=== PATIENT | female | born 1995 | race Caucasian/White ===

== ENCOUNTER 2017-11-19 21:45 | Emergency (ER) | payer OTHER, SELFPAY ==
[2017-11-19 21:46] VITALS: BP 132/87; PULSE 82; RESP 14; TEMP 37.2; O2SAT 98; BMI 33.8
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
[2017-11-19] MEDS: Amox/Clavulanate 875 MG Tablet PO (23:23)
[2017-11-19] MEDS: Diphth,Pertuss(Acell),Tet Vac 0.5 ML Vial IM (23:23)
== END 2017-11-19 23:38 | disposition home or self-care (01) ==
LOC: ED 23:18
PROVIDERS: Emergency Provider Emergency Medicine
DX: S21.251A Open bite of right back wall of thorax without penetration into thoracic cavity, initial encounter (principal); Z23 Encounter for immunization; Y04.1XXA Assault by human bite, initial encounter; Y93.89 Activity, other specified; Y92.89 Other specified places as the place of occurrence of the external cause; Y99.0 Civilian activity done for income or pay
CPT/HCPCS: 90471; 90715; 99283

== ENCOUNTER 2018-04-04 22:17 | Emergency (ER) | payer BC, SELFPAY ==
[2018-04-04 22:18] VITALS: BP 160/84; PULSE 97; RESP 20; TEMP 36.8; O2SAT 99; BMI 36.1
[2018-04-04 22:57] VITALS: RESP 16
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
--- NOTE | 2018-04-04 23:15 | ED.DEP ---
ED Disposition - Plan for ED Patient: Disposition: Home or Assisted Living Chief Complaint: Allergic Reaction Instructions: ED Allergic Reaction Local Other Referrals: Care Physician,No Primary [Primary Care Provider] - Guillermo Pillai DO [NON CLINICAL AFFILIATE] -
[2018-04-04 23:21] VITALS: BP 130/85; PULSE 82; RESP 16; O2SAT 100
--- NOTE | 2018-04-04 23:21 | ED.RN ---
REVIEWED D/C INSTRUCTIONS, FOLLOW UP CARE, AND S/S THAT WOULD WARRANT A RETURN TO THE ED WITH PT. PT VERBALIZED AN UNDERSTANDING AND DENIES FURTHER QUESTIONS FOR THIS RN. PT SKIN P/W/D, RESP EVEN AND UNLABORED, PT A&O X 3, NO DISTRESS NOTED. PT AMBULATED OUT OF ED, GAIT STEADY.
== END 2018-04-04 23:23 | disposition home or self-care (01) ==
PROVIDERS: Emergency Provider Emergency Medicine
DX: T78.1XXA Other adverse food reactions, not elsewhere classified, initial encounter (principal); R22.0 Localized swelling, mass and lump, head
CPT/HCPCS: 99282

== ENCOUNTER → 2021-05-12 | Outpatient (CLI) | payer BC, SELFPAY ==
[2021-05-12 13:22] LABS: Amphetamine Urine VISTA NEGATIVE (<1000 ng/mL); Barbiturate Urine VISTA NEGATIVE (< 200 ng/mL); Benzodiazepine Urine VISTA NEGATIVE (< 200 ng/mL); Cocaine Urine VISTA NEGATIVE (< 300 ng/mL); Ecstacy Urine VISTA NEGATIVE (< 500 ng/mL); Methadone Urine VISTA NEGATIVE (< 300 ng/mL); PCP Urine VISTA NEGATIVE (< 25 ng/mL); THC Urine VISTA NEGATIVE (< 50 ng/mL); Vista UDS pH Range 6
[2021-05-15 03:07] LABS: Chlamydia By Nucleic Acid AMP Negative (Negative)
[2021-05-15 13:05] LABS: Gonococcus By Nucleic Acid AMP Negative (Negative)
[2021-05-16 22:29] LABS: HPV Reflexed? NOT INDICATED
== END | disposition home or self-care (01) ==
PROVIDERS: Obstetrics & Gynecology; Visit Provider Obstetrics & Gynecology
DX: Z34.00 Encounter for supervision of normal first pregnancy, unspecified trimester (principal)
CPT/HCPCS: 80307; 87086; 87088; 87491; 87591; 88175; G0145

== ENCOUNTER → 2021-06-05 08:41 | Outpatient (CLI) | payer BC, SELFPAY ==
[2021-06-05 09:58] LABS: NATERA MAILED SPECIMEN
[2021-06-05 10:26] LABS: Absolute Lymphocyte Count 2.31 X10^3/uL (0.83-4.51); Basophil# 0.04 X10^3/uL; Basophil% 0.4 % (0-1); Eosinophil# 0.07 X10^3/uL; Eosinophils% 0.8 % (0-5); Hematocrit 36.2 % (37-47); Hemoglobin 11.1 g/dL (12.0-15.0); Lymphocyte # 2.31 X10^3/ul (0.83-4.51); Lymphocyte % 25.8 % (19-41); Mean Corp Hgb Conc 30.7 g/dL (32-36); Mean Corpuscular Hgb 24.6 pg (27.0-32.0); Mean Corpuscular Volume 80.1 fL (81-99); Monocyte# 0.51 X10^3/uL; Monocyte% 5.7 % (0-10); NRBC Flagged by Analyzer 0 % (0-5); Neutrophil % 66.9 % (47-70); Platelet Count 302 K/mm3 (150-450); RBC Distribution Width CV 15.3 % (11.6-14.6); RBC Distribution Width SD 44.4 fl (35.1-43.9); Red Blood Count 4.52 M/mm3 (4.2-5.4)
[2021-06-05 10:52] LABS: Glucose Challenge Gest 1H 50g 125 mg/dL (70-140)
[2021-06-05 11:28] LABS: HIV - WCH Non-Reactive (Nonreactive); Hepatitis B Surface Antigen Non-Reactive (Nonreactive); Hepatitis C Antibody Non-Reactive (Nonreactive); Rubella IgG Reactive (Nonreactive); Syphilis Antibodies Non-reactive
== END ==
PROVIDERS: Visit Provider Obstetrics & Gynecology
DX: O99.210 Obesity complicating pregnancy, unspecified trimester (principal); Z3A.00 Weeks of gestation of pregnancy not specified
CPT/HCPCS: 36415; 82950; 85025; 86703; 86762; 86780; 86803; 86850; 86900; 86901; 87340

== ENCOUNTER → 2021-09-01 | Outpatient (CLI) | payer BC, SELFPAY ==
[2021-09-01 17:39] LABS: Protein, Urine (Random) 14.6 mg/dL (<11.9); Protein:Creat Ratio 160 mg/g CRE (0-200)
== END | disposition home or self-care (01) ==
PROVIDERS: Visit Provider Obstetrics & Gynecology
DX: O10.919 Unspecified pre-existing hypertension complicating pregnancy, unspecified trimester (principal)
CPT/HCPCS: 82570; 84156

== ENCOUNTER 2021-09-28 10:30 | Outpatient (CLI) | payer BC, SELFPAY ==
[2021-09-28 11:04] LABS: Absolute Lymphocyte Count 1.89 X10^3/uL (0.83-4.51); Absolute Neutrophil Count 7.5 X10^3/uL (2.0-7.7); Basophil# 0.04 X10^3/uL; Basophil% 0.4 % (0-1); Eosinophil# 0.09 X10^3/uL; Eosinophils% 0.9 % (0-5); Hematocrit 33.7 % (37-47); Hemoglobin 10.7 g/dL (12.0-15.0); Lymphocyte # 1.89 X10^3/ul (0.83-4.51); Lymphocyte % 18.4 % (19-41); Mean Corp Hgb Conc 31.8 g/dL (32-36); Mean Corpuscular Hgb 26.8 pg (27.0-32.0); Mean Corpuscular Volume 84.5 fL (81-99); Mean Platelet Vol. 11.6 fl (6.2-12.0); Monocyte# 0.68 X10^3/uL; Monocyte% 6.6 % (0-10); NRBC Flagged by Analyzer 0 % (0-5); Neutrophil # 7.47 X10^3/uL (2.7-7.7); Neutrophil % 72.9 % (47-70); Platelet Count 225 K/mm3 (150-450); RBC Distribution Width CV 13.3 % (11.6-14.6); RBC Distribution Width SD 41.2 fl (35.1-43.9); Red Blood Count 3.99 M/mm3 (4.2-5.4); White Blood Count 10.3 K/mm3 (4.4-11.0)
[2021-09-28 11:46] LABS: Glucose Challenge Gest 1H 50g 109 mg/dL (70-140)
[2021-09-28 11:53] LABS: Absolute Neutrophil Count 7.4 X10^3/uL (2.0-7.7); Basophil# 0.04 X10^3/uL; Basophil% 0.4 % (0-1); Eosinophil# 0.08 X10^3/uL; Eosinophils% 0.8 % (0-5); Hemoglobin 10.6 g/dL (12.0-15.0); Lymphocyte % 19.2 % (19-41); Mean Corp Hgb Conc 32.1 g/dL (32-36); Mean Platelet Vol. 11.8 fl (6.2-12.0); Monocyte# 0.69 X10^3/uL; Monocyte% 6.6 % (0-10); NRBC Flagged by Analyzer 0 % (0-5); Neutrophil # 7.41 X10^3/uL (2.7-7.7); Neutrophil % 71.2 % (47-70); Platelet Count 242 K/mm3 (150-450); RBC Distribution Width CV 13.2 % (11.6-14.6); RBC Distribution Width SD 40.9 fl (35.1-43.9); Red Blood Count 3.93 M/mm3 (4.2-5.4); White Blood Count 10.4 K/mm3 (4.4-11.0)
[2021-09-28 12:14] LABS: ALB/GLOB Ratio 0.6 RATIO (0.9-2.4); AST(SGOT) 11 U/L (15-37); Alanine Aminotransfer ALT/SGPT 21 U/L (13-56); Albumin, Serum 2.8 g/dL (3.2-5.0); Alkaline Phosphatase 80 U/L (45-117); Anion Gap 9 (5-15); BUN 5 mg/dL (7-18); BUN/Creat Ratio 12.3 RATIO (10-20); Calcium,Total 8.6 mg/dL (8.5-10.1); Chloride 105 mmol/L (98-107); EST Glomerular Filtration Rate 200 mL/min (>60); Est Glom Filt Rate - Afr Amer 242 mL/min (>60); Globulin 4.5 g/dL (2.2-4.2); Glucose 98 mg/dL (74-106); Potassium 4.1 mmol/L (3.5-5.1); Protein, Total 7.3 g/dL (6.4-8.2); Sodium Level 136 mmol/L (136-145)
[2021-09-28 12:21] LABS: Protein, Urine (Random) < 6.0 mg/dL (<11.9)
== END 2021-09-28 23:59 | disposition short-term general hospital (02) ==
LOC: PAVLAB 10:31
PROVIDERS: Nurse Practitioner Women's Health; Referring Provider Obstetrics & Gynecology; Visit Provider Obstetrics & Gynecology
DX: O10.919 Unspecified pre-existing hypertension complicating pregnancy, unspecified trimester (principal); Z3A.00 Weeks of gestation of pregnancy not specified; Z13.1 Encounter for screening for diabetes mellitus
CPT/HCPCS: 36415; 80053; 82570; 82950; 84156; 85025

== ENCOUNTER 2021-10-13 14:32 | Outpatient (CLI) | payer BC, SELFPAY ==
[2021-10-13 11:52] LABS: Protein, Urine (Random) 11.8 mg/dL (<11.9); Protein:Creat Ratio 174 mg/g CRE (0-200)
== END 2021-10-13 23:59 | disposition home or self-care (01) ==
LOC: LABSPEC 11-30 14:32
PROVIDERS: Visit Provider Obstetrics & Gynecology
DX: O10.919 Unspecified pre-existing hypertension complicating pregnancy, unspecified trimester (principal)
CPT/HCPCS: 82570; 84156

== ENCOUNTER 2021-11-16 09:12 | Outpatient (CLI) | payer BC, SELFPAY ==
--- NOTE | 2021-11-16 09:14 | US_ITS ---
History: growth Obstetrical ultrasound: Findings: Single live intrauterine gestation in cephalic presentation, longitudinal lie. cardiac rate is 138 BPM. Anterior placenta without previa or abruption. Grade 0 maturity change. Amniotic fluis index is 13.2 cm Cervix is closed and measures 3.3 cm in length. BPD 8.8cm Head circumference 32.7cm Abdominal circumference 31.2cm Femur length 6.9cm EFW 2680 g 56th percentile for estimated age Composite gestational age by ultrasound measurements 36 weeks 1 day. Clinical gestational is 35 weeks 1 day. Clinical EDC is December 20, 2021. No anatomical abnormalities are identified. Impresion: Single live 35 week 1 day intrauterine gestation with normal interval growth. at 1442 Reported and signed by: Alcides Ordonez MD Electronically Signed: Alcides Ordonez MD at 14:41 EST , US/OB Limited With Biometrics
== END 2021-11-16 23:59 | disposition home or self-care (01) ==
PROVIDERS: Visit Provider Nurse Practitioner Women's Health
DX: O99.213 Obesity complicating pregnancy, third trimester (principal); O10.913 Unspecified pre-existing hypertension complicating pregnancy, third trimester; Z3A.34 34 weeks gestation of pregnancy
CPT/HCPCS: 76816

== ENCOUNTER 2021-11-24 13:23 | Outpatient (CLI) | payer BC, SELFPAY | END 2021-11-24 23:59 | disposition home or self-care (01) | LOC: LABSPEC 12-12 13:23 | PROVIDERS: Visit Provider Obstetrics & Gynecology | DX: Z34.01 Encounter for supervision of normal first pregnancy, first trimester (principal) | CPT/HCPCS: 87081 ==

== ENCOUNTER 2021-12-08 11:24 | Outpatient (CLI) | payer BC, SELFPAY ==
--- NOTE | 2021-12-08 11:28 | US_ITS ---
STUDY: SECOND AND THIRD TRIMESTER OBSTETRICAL ULTRASOUND - LIMITED REASON FOR EXAM: Female, 26 years old. JOSE PRIOR ULTRASOUND: 3.3.22 TECHNIQUE: Transabdominal TECHNICAL QUALITY: Adequate. FINDINGS: There is a single intrauterine fetus. The fetus is in a cephalic presentation. There is demonstrated cardiac activity with a heart rate of 153 bpm. There is a normal amniotic fluid volume. The largest amniotic fluid pocket measures 3.2 cm. The amniotic fluid index (JOSE) is 8.2 cm. The placenta is anterior in location and is not low lying. There are Grade 2 placental changes. The cervix is obscured by overlying bowel gas and cannot be identified. . BIOMETRY: BPD: 94 mm: 38 weeks, 1 days HC: 369 mm: out of range days AC: 361 mm: 40 weeks, 0 days FL: 75 mm: 38 weeks, 3 days CI: 71 FL/AC: 21 FL/BPD: 80 HC/AC: 1.02 age by current US: 38 weeks, 6 days. URIEL by current US: 4.2.22. Estimated weight: 3915 grams, +/- 572 grams, 93 %. age by prior US: 39 weeks, 2 days. URIEL by prior US: 3.30.22. Age by LMP: 38 weeks, 2 days. URIEL by LMP: 4.6.22. US/OB Limited With Biometrics IMPRESSION: There is a single live intrauterine with a heart rate of 153 bpm. age by current US: 38 weeks, 6 days. URIEL by current US: 4.2.22. Estimated weight: 3915 grams, +/- 572 grams, 93 %. EFW is greater than 75%. Large for gestational age (LGA) should be considered. Electronically Signed: Chencho Koehler MD at 16:58 EDT ,
== END 2021-12-08 23:59 | disposition home or self-care (01) ==
LOC: US 11:26
PROVIDERS: Referring Provider Nurse Practitioner Women's Health; Visit Provider Nurse Practitioner Women's Health
DX: O10.913 Unspecified pre-existing hypertension complicating pregnancy, third trimester (principal); Z3A.37 37 weeks gestation of pregnancy
CPT/HCPCS: 76816

== ENCOUNTER 2021-12-13 19:10 | Inpatient (IN) | payer BC, SELFPAY ==
[2021-12-13 19:29] VITALS: BMI 42.8
[2021-12-13] MEDS: 0.9% Saline Lock 10 ML Syringe IV (19:45)
[2021-12-13 19:50] VITALS: TEMP 36.4
[2021-12-13 19:56] VITALS: BP 145/90; PULSE 101; TEMP 35.9
[2021-12-13 20:10] LABS: Absolute Lymphocyte Count 2.01 X10^3/uL (0.83-4.51); Absolute Neutrophil Count 6.9 X10^3/uL (2.0-7.7); Basophil# 0.03 X10^3/uL; Basophil% 0.3 % (0-1); Eosinophil# 0.04 X10^3/uL; Eosinophils% 0.4 % (0-5); Hematocrit 35.7 % (37-47); Hemoglobin 11.6 g/dL (12.0-15.0); Lymphocyte # 2.01 X10^3/ul (0.83-4.51); Lymphocyte % 20.6 % (19-41); Mean Corp Hgb Conc 32.5 g/dL (32-36); Mean Corpuscular Hgb 27.5 pg (27.0-32.0); Mean Corpuscular Volume 84.6 fL (81-99); Mean Platelet Vol. 13.6 fl (6.2-12.0); Monocyte# 0.69 X10^3/uL; Monocyte% 7.1 % (0-10); NRBC Flagged by Analyzer 0 % (0-5); Neutrophil # 6.92 X10^3/uL (2.7-7.7); Neutrophil % 70.8 % (47-70); Platelet Count 160 K/mm3 (150-450); RBC Distribution Width CV 14.6 % (11.6-14.6); RBC Distribution Width SD 44.4 fl (35.1-43.9); Red Blood Count 4.22 M/mm3 (4.2-5.4); White Blood Count 9.8 K/mm3 (4.4-11.0)
[2021-12-13] MEDS: miSOPROStol 25 MCG TABLET VAGINAL (20:21)
--- NOTE | 2021-12-13 20:55 | HP.PCM.OB_ITS ---
HPI - General General Date of Admission: 12/13/21 HPI Narrative TERRY MONROE, is a 26 @ 39 weeks 0days who presents for IOL due to chronic hypertension in . Maternal Data Information URIEL Calculator Estimated Delivery Date Method Current WG Current Estimate 12/20/21 LMP (Uncertain) 39w 0d Other Estimates 12/18/21 Ultrasound #1 39w 2d PFSH PFSH Medical History (Updated 12/13/21 @ 19:32 by Francia Machado) Asthma Chronic hypertension Home Medications aspirin 81 mg tablet,delayed release 81 mg PO DAILY 09/28/21 [History Last Taken Unknown] ferrous sulfate 325 mg (65 mg iron) tablet 325 mg PO DAILY 10/24/21 [History Last Taken Unknown] vitamin#30 30 mg iron-10 mg iron-folic acid 1 mg-omg3 capsule cap PO 10/24/21 [History Last Taken Unknown] Allergy/AdvReac Type Severity Reaction Status Date / Time No Known Allergies Allergy Verified 12/05/21 08:59 Family History Father Myocardial infarction Social History household members: spouse housing: house pets and animals: Yes Smoking Status: Never smoker second hand exposure: No alcohol intake: never substance use type: does not use seatbelt use: always do you feel safe at home: Yes additional social history: - Levi ([facility]) History 1 Elective abortions Hx Para 0 Spontaneous abortions Hx # Term Pregnancies Ectopic pregnancies Hx # Pregnancies Multiple births # of living children Visit Details Expected Delivery Route/Plan Labor Preferences- CB/BF classes: encouraged labor support person: Vashti labor intervention preferences: [] pain management options preferred: limited intervention cut cord/dad catch: cord : yes PP control planned: discussed discussed possible routes of delivery and associated risks: [] special requests: [] Plans Covid status: counseled regarding risk of covid in vs vaccination and declined vaccination Flu vaccine: declined Tdap vaccine: declined Rhogam: na LARC form signed: yes movement and labor precautions reviewed. Problem list reviewed and updated with the most current plan of care details and appropriate orders placed. Relevant counseling for the gestational age provided. Continue routine care and follow up unless otherwise noted in visit notes/problem list details OB Flowsheet Initial Weight: 218 lb Date -?-?-?-?-?-?-?-?-?-?-?-?- EGA Weight BP Urine Prot -?-?-?-?-?-?-?-?-?-?-?-?- Glucose FHR FuHt Pres Dilation -?-?-?-?-?-?-?-?-?-?-?-?- Effaced St Visit Note 05/12/21 -?-?-?-?-?-?-?--?-?-?-?-?- 8w 2d 218 lb 4 oz (+4 oz) 140/90 -?-?-?-?-?-?-?-?-?-?-?-?- 170 -?-?-?-?-?-?-?-?-?-?-?-?- GP - CRL consist ent with LMP. 06/05/21 -?-?-?-?-?-?-?-?-?-?-?-?- 11w 5d 216 lb 6 oz (-1 lb 10 oz) 120/80 Negative -?-?-?-?-?-?-?-?-?-?-?-?- Negative 160 -?-?-?-?-?-?-?-?-?-?-?-?- GP - no cramping or bleeding. Anatomy ordered. Labs drawn today. Still nauseous - zofran prescribed 07/06/21 -?-?-?-?--?-?-?-?-?-?-?-?- 16w 1d 218 lb 6 oz (+6 oz) 130/80 Negative -?-?-?-?-?-?-?-?-?-?-?-?- Negative 161 -?-?-?-?-?-?-?-?-?-?-?-?- Mh-No Vb, LOF. Some AM headaches:take phenergan at HS and also small amount caffeine in AM. anatomy US scheduled 08/04/21 -?-?-?-?-?-?-?-?-?-?-?-?- 20w 2d 223 lb 4 oz (+5 lb 4 oz) 136/88 Negative -?-?-?-?-?-?-?-?-?-?-?-?- Negative 150 20 -?-?-?-?-?-?-?-?-?-?-?-?- SM- no vb crampi ng 09/01/21 -?-?-?-?-?-?-?-?-?-?-?-?- 24w 2d 227 lb 6 oz (+9 lb 6 oz) 138/80 Negative -?-?-?-?-?-?-?-?-?-?-?-?- Negative 143 -?-?-?-?-?-?-?-?-?-?-?-?- JV- bp slightly elevated, however it was 140/90 at first visit. suspect CHTN. starting baby asa and obtaining baseling UT:Cr ratio. 09/28/21 -?-?-?-?-?-?-?-?-?-?-?-?- 28w 1d 230 lb 2 oz (+12 lb 2 oz) 136/96 -?-?-?-?-?-?-?-?-?-?-?-?- 165 28 -?-?-?-?-?-?-?-?-?-?-?-?- MH-No VB, LOF. A nemia noted, add fe. GCT still pending. BP elevated:pre E labs. Denies headache, vision changes 10/13/21 -?-?-?-?-?-?-?-?-?-?-?-?- 30w 2d 228 lb 4 oz (+10 lb 4 oz) 134/94 Negative -?-?-?-?-?-?-?-?-?-?-?-?- Negative 154 30 -?-?-?-?-?-?-?-?-?-?-?-?- JV- no lof, vagi nal bleeding, or dec fm. pt is having intermittent headaches (none today) her bp remains board[place]line elevated. suspect chtn. continue baby asa and rpt pih labs next visit. will order a new pr:cr ratio as last visit it was too low to analyze. 10/24/21 -?-?-?-?-?-?-?-?-?-?-?-?- 31w 6d 230 lb (+12 lb) 116/78 Negative -?-?-?-?-?-?-?-?-?-?-?-?- Negative 150 -?-?-?-?-?-?-?-?-?-?-?-?- MH-reactive NST only 10/27/21 -?-?-?-?-?-?-?-?-?-?-?-?- 32w 2d 231 lb 4 oz (+13 lb 4 oz) 118/88 118/88 Negative -?-?-?-?-?-?-?-?-?-?-?-?- Negative 145 32 -?-?-?-?-?-?-?-?-?-?-?-?- JV- NST Reactive . bp better today. Continue twice weekly nsts for chronic htn, rpt labs next week, delivery planned for 39 weeks. 10/31/21 -?-?-?-?-?-?-?-?-?-?-?-?- 32w 6d 232 lb (+14 lb) 120/82 Negative -?-?-?-?-?-?-?-?-?-?-?-?- Negative 150 -?-?-?-?-?-?-?-?-?-?-?-?- MH-NST only reac tive 11/03/21 -?-?-?-?-?-?-?-?-?-?-?-?- 33w 2d 232 lb (+14 lb) 126/78 Negative -?-?-?-?-?-?-?-?-?-?-?-?- Negative 140 -?-?-?-?-?-?-?-?-?-?-?-?- SM- no vb lof go od fm no regular ctx 11/07/21 -?-?-?-?-?-?-?-?-?-?-?-?- 33w 6d 235 lb (+17 lb) 118/78 Negative -?-?-?-?-?-?-?-?-?-?-?-?- Negative 150 -?-?-?-?-?-?-?-?-?-?-?-?- MH-NST only reac tive 11/10/21 -?-?-?-?-?-?-?-?-?-?-?-?- 34w 2d 235 lb (+17 lb) 129/83 Negative -?-?-?-?-?-?-?-?-?-?-?-?- Negative 140 -?-?-?-?-?-?-?-?-?-?-?-?- SM- SM- no vb lof good fm no reg ular ctx growth us ordered for next week 11/14/21 -?-?-?-?-?-?-?-?-?-?-?-?- 34w 6d 235 lb (+17 lb) 110/80 Negative -?-?-?-?-?-?-?-?-?-?-?-?- Negative 130 -?-?-?-?-?-?-?-?-?-?-?-?- -NST only. Carlie ctive. Growth US sched this wk 11/16/21 -?-?-?-?-?-?-?-?-?-?-?-?- 35w 1d 235 lb 6 oz (+17 lb 6 oz) 122/88 -?-?-?-?-?-?-?-?-?-?-?-?- 140 -?-?-?-?-?-?-?-?-?-?-?-?- JV- no lof, vagi nal bleeding ,or dec fm. JV- no lof, vaginal bleeding ,or dec fm. growth 56th% JV- NST reactive no lof, vag inal bleeding ,or dec fm. growth 56th% 11/21/21 -?-?-?-?-?-?-?-?-?-?-?-?- 35w 6d 236 lb (+18 lb) 236 lb (+18 lb) 136/86 Negative -?-?-?-?-?-?-?-?-?-?-?-?- Negative 130 -?-?-?-?-?-?-?-?-?-?-?-?- JV- NST reactive 11/24/21 -?-?-?-?-?-?-?-?-?-?-?-?- 36w 2d 236 lb 6 oz (+18 lb 6 oz) 119/84 Negative -?-?-?-?-?-?-?-?-?-?-?-?- Negative 150 37 Cephalic 0 -?-?-?-?-?-?-?-?-?-?-?-?- -4 JV - carlie ctive NST,GBS collected. plan for 39 week IOL. 11/28/21 -?-?-?-?-?-?-?-?-?-?-?-?- 36w 6d 237 lb (+19 lb) 137/83 Negative -?-?-?-?-?-?-?-?-?-?-?-?- Negative 150 -?-?-?-?-?-?-?-?-?-?-?-?- -NST only reac tive 12/01/21 -?-?-?-?-?-?-?-?-?-?-?-?- 37w 2d 239 lb (+21 lb) 120/82 Negative -?-?-?-?-?-?-?-?-?-?-?-?- Negative 145 37 Cephalic 0 -?-?-?-?-?-?-?-?-?-?-?-?- SM- no vb lof go od fm no regular ctx SM- no vb lof good fm no reg ular ctx discussed IOL at 38 weeks due to cHTN. 12/05/21 -?-?-?-?-?-?-?-?-?-?-?-?- 37w 6d 241 lb (+23 lb) 132/84 Negative -?-?-?-?-?-?-?-?-?-?-?-?- Negative 150 -?-?-?-?-?-?-?-?-?-?-?-?- -NST only. Carlie ctive. JOSE today. rpt NST 12/08.Induction planned 12/13 7pm 12/08/21 -?-?-?-?-?-?-?-?-?-?-?-?- 38w 2d 244 lb (+26 lb) 136/88 Negative -?-?-?-?-?-?-?-?-?-?-?-?- Negative 140 -?-?-?-?-?-?-?-?-?-?-?-?- SM- continued mo nitoring, nl home bps and disucssed exp mangt vs IOL pt wishes to prcoeed with IOL at 39 weeks 12/12/21 -?-?-?-?-?-?-?-?-?-?-?-?- 38w 6d 243 lb (+25 lb) 125/81 Negative -?-?-?-?-?-?-?-?-?-?-?-?- Negative 150 -?-?-?-?--?-?-?-?-?-?-?-?- -NST only reac tive 12/13/21 -?-?-?-?-?-?-?-?-?-?-?-?- 39w 0d 242 lb (+24 lb) 145/90 -?-?-?-?-?-?-?-?-?-?-?-?- -?-?-?-?-?-?-?-?-?-?-?-?- ROS Constitutional Constitutional: Denies change in weight, fatigue, fever(s), headache(s), poor appetite or weakness Eyes Eyes: Denies blurry vision, change in vision, seeing flashes or spots in vision ENT HEENT: Denies dizziness, headache(s), loss taste/smell or sore throat Cardiovascular Cardiovascular: Denies chest pain, dizziness, dyspnea, irregular heart rhythm, leg edema, palpitations, rapid heart rate or vomiting Respiratory/Chest Respiratory/Chest: Denies chest tightness, cough, dyspnea or breast pain Gastrointestinal Gastrointestinal: Denies abdominal pain, anorexia, constipation, cramping, diarrhea, hemorrhoids, vomiting or weight changes Genitourinary Genitourinary: Denies dysuria, flank pain, genital lesions, genital pain, urinary frequency or urinary urgency Musculoskeletal Musculoskeletal: Denies back pain, difficulty walking, joint pain, limited range of motion, muscle cramps or numbness Integumentary Integumentary: Denies lesions or unusual bruising Neurologic Neurologic: Denies abnormal movements, abnormal speech, dizziness, numbness, seizure-like activity or syncope Psychiatric Psychiatric: Denies anxiety, behavioral changes, change in appetite, change in libido, cognitive impairment, confusion, depression, difficulty concentrating, hallucinations or suicidal thoughts Endocrine Endocrinology: Denies excessive sweating, polydipsia or polyuria Hematologic/Lymphatic Hematologic/Lymphatic: Denies easy bleeding, easy bruising or lymphadenopathy Allergic/Immunologic Allergic/Immunologic: Denies itchy eyes, lip swelling, seasonal rhinorrhea, rhinitis, throat swelling, tongue swelling, eczemia, wheezing or asthma Vital Signs Vital Signs Vital Signs: 12/13/21 19:50 12/13/21 19:56 Temperature 97.6 F L 96.6 F L Temperature Source Temporal Pulse Rate 101 H Blood Pressure 145/90 H BP Systolic 145 BP Diastolic 90 Weight Weight: 242 lb Body Mass Index (BMI) 42.8 Physical Exam Const alert, oriented x3, no apparent distress and healthy appearing General Appearance: cooperative; Negative for anxious HEENT normocephalic Face and Sinus: normal facial exam Eyes EOMs intact bilaterally and no scleral icterus General Eye: normal appearance of both eyes Neck full ROM and supple Lymph Lymphatic: no lymphadenopathy noted Chest Chest: abnormal inspection of the chest Resp normal respiratory effort Effort and Inspection: able to speak in complete sentences Cardio regular rate GI soft to palpation and non-tender Inspection: gravid Palpation: soft; Negative for tender external exam normal Amniotic Fluid: other cx is closed, thick, high Back/Spine no CVA tenderness Extremity normal to inspection, full ROM and no clubbing, cyanosis or edema General Extremity: Negative for calf tenderness or edema Skin Lesions: no lesions Rashes: no rashes Psych mental status grossly normal Labs Labs Labs: Blood Type O POSITIVE Antibody Screen NEGATIVE Hct 35.7 % (37-47) L Hgb 11.6 g/dL (12.0-15.0) L Obstetrics US Syphilis Total Ab Non-reactive Rubella IgG Antibody Reactive (Nonreactive) Hep Bs Antigen Non-Reactive (Nonreactive) Chlamydia DNA (LOUISA) Negative (Negative) Neisseria gonorrhoeae DNA (LOUISA) Negative (Negative) HIV 1&2 Antibody Non-Reactive (Nonreactive) Glucose 1 Hr 50 gm 109 mg/dL (70-140) Assessment & Plan (1) : QUALIFIERS: Weeks of gestation: 38 weeks Qualified Code(s): Z3A.38 - 38 weeks gestation of COMMENT: anatomy nl NIPT nl, declined carrier and NTD, NL growth US. GBS neg (2) Supervision of normal first : QUALIFIERS: Trimester: first trimester Qualified Code(s): Z34.01 - Encounter for supervision of normal first , first trimester COMMENT: PRR URIEL: 12/20/[birth year]21 girl Spouse: Levi (3) Obesity affecting : QUALIFIERS: Trimester: third trimester Qualified Code(s): O99.213 - Obesity complicating , third trimester COMMENT: bmi 38 1 tm gct nl. encouraged healthy weight gain (4) Chronic hypertension affecting : COMMENT: no meds. baseline Pr:Cr ratio ordered 09/01, starting baby asa. discussed and patient prefers Delivery 39 weeks. twice weeky nsts at 32 weeks. growth scan at 36 weeks. (5) Anemia affecting : QUALIFIERS: Trimester: third trimester Qualified Code(s): O99.013 - Anemia complicating , third trimester COMMENT: add fe PLAN: Patient presents IOL, plan management for with cytotec tonight, bingham/pit/arom tomorrow am . Pain management: plans epidural. GBS negative. Management of any complications: chronic hypertension, obesity, anemia in I have reviewed the [facility] and made any clinically relevant updates.
[2021-12-14] VITALS (54 sets, daily range): BP systolic 109–156; BP diastolic 54–110; PULSE 84–125; TEMP 36.5–37.8; O2SAT 81–100
[2021-12-14] MEDS: miSOPROStol 25 MCG TABLET VAGINAL ×2 (00:06→04:14)
[2021-12-14] MEDS: 0.9% Normal Saline Single 100 ML IV.SOLN. INTRA-UTER (08:17)
--- NOTE | 2021-12-14 08:48 | PCM.PN.BLA ---
Progress Note pt is ambulating without difficulty and has no complaints. she consents to bingham bulb placement current tracing: FHT: Moderate variability reactive no decelerations category I tracing [place]: q1-2 minContractions bingham catheter was placed into the cervix and inflated with 80cc ns. patient tolerated this very well. internal os 2 cm, e xternal is 1 cm/70% effaced reviewed tracing abnormalities since last note: no changes A/P: start pitocin prn. collect pr:cr ratio for chronic htn and slightly worsening bp's
[2021-12-14] MEDS: Ondansetron 4 MG/2 ML Vial IV (09:04)
[2021-12-14] MEDS: fentaNYL 100 MCG/2 ML Ampul IV ×2 (09:29→13:45)
[2021-12-14] MEDS: 0.9% Saline Lock 10 ML Syringe IV ×2 (09:30→13:46)
[2021-12-14] MEDS: Oxytocin 30 units/NS 500 ml 30 UNITS/500 ML IV.SOLN IV (12:25)
[2021-12-14] MEDS: Lactated Ringers 1,000 ML 50 ML IV (12:25)
[2021-12-14 13:04] LABS: Protein, Urine (Random) 35.1 mg/dL (<11.9); Protein:Creat Ratio 580 mg/g CRE (0-200)
[2021-12-14] MEDS: Lactated Ringers 500 ML 999 ML IV (14:21)
[2021-12-14] MEDS: fentaNYL-bupivacaine (epidural) 100 ML BAG EPIDURAL ×2 (15:27→19:32)
[2021-12-14] MEDS: Lactated Ringers 1,000 ML 200 ML IV (19:33)
[2021-12-15] VITALS (26 sets, daily range): BP systolic 118–153; BP diastolic 63–94; PULSE 91–140; RESP 12–16; TEMP 36.1–38.2; O2SAT 95–99
[2021-12-15] MEDS: Lactated Ringers 1,000 ML 200 ML IV (00:44)
[2021-12-15] MEDS: fentaNYL-bupivacaine (epidural) 100 ML BAG EPIDURAL (00:45)
[2021-12-15] MEDS: Acetaminophen 500 MG Tablet PO (01:19)
[2021-12-15] MEDS: Oxytocin 30 units/NS 500 ml 30 UNITS/500 ML IV.SOLN 334 UNITS IV (03:54)
--- NOTE | 2021-12-15 04:21 | EX.PCM.OBRPT ---
Maternal Data Information URIEL Calculator Estimated Delivery Date Method Current Current Estimate 12/20/21 LMP (Uncertain) 39w 2d Other Estimates 12/18/21 Ultrasound #1 39w 4d Vaginal Delivery Maternal Presentation Maternal Presentation: Medically Indicated Induction Type of Induction: Pitocin, Patino Bulb, Amniotomy and Cytotec Operative Information Date of Procedure: 12/15/21 Pre-Operative Diagnosis: @ 39 weeks, chronic hypertension with superimposed mild pre-eclampsia, failure to descend Post-Operative Diagnosis: @ 39 weeks, chronic hypertension with superimposed mild pre-eclampsia, failure to descend Surgery / Procedure Performed: Vacuum Assisted Vaginal Delivery Type of Anesthesia: Epidural Estimated Blood Loss: 200cc Findings Description of Procedure: Patient pushed for 4 hours and brought the head to a +2 station. She gave consent to perform a vacuum extraction. The kiwi was placed on the infants head, anterior to the posterior fontanelle. The kiwi was suctioned to the green zone and pulled x 1 without pop offs. She delivered the head in the JOSE presentation. The head was delivered atraumatically and a loose nuchal cord ?1 was identified and easily reduced over the infant's head. The anterior and posterior shoulders delivered without complication followed by the rest of the and the was placed on the maternal abdomen. Delayed cord clamping was employed for approximately 60 seconds. Cord was clamped and cut and gentle traction was applied to the cord and the placenta delivered spontaneously immediately following it was noted to be intact with three-vessel cord. The perineum and vagina were inspected and noted to have a 1st degree perineal laceration EBL was 200cc. Patient and infant tolerated delivery well. Presentation: Vertex Amniotic Fluid Description: Clear Placental Delivery Description: Spontaneous Placenta Disposition: [facility] Cord Vessel Description: 3 Vessels Cord Entanglement: Around neck x 1, loose Nuchal Cord Compression: Without compression Infant A Gender: Female (1 minute): 8 (5 minute): 9 Delayed Cord Clamping: Yes Post Vaginal Delivery Medications Given After Delivery: IV Pitocin Episiotomy Description: None Laceration: 1st degree Complication Complications: None Multi Select Codes Urinary/Genital Urinary/Genital CPT Codes: 99247 Vaginal Delivery global pkg (vacuum assisted )
--- NOTE | 2021-12-15 04:24 | PCM.DC ---
Discharge Instructions Diet Discharge Diet: No restrictions Activity Discharge Activity: Return to Normal Activity, May Not Drive (while taking narcotic pain medications.) and May Shower May resume sexual activity in: 4-6 weeks Dressing / Incision Call your doctor if your incision/area has: Continuous Slow Oozing, Sudden Increased Bleeding, Increased Pain/ Swelling, Increased Redness and Foul Smelling Discharge Follow Up Care Please Follow Up With: Dorothy Morales DO When: Call [phone] to make an appointment with your doctor in 6 weeks. If you had elevated blood pressure or 4th degree laceration, you will need to be seen in 2 weeks. Test Results: Test results from this visit will be discussed in further detail at your follow-up appointment, if applicable. Discharge Plan Admission Admit Date/Time: 12/13/21 19:10 Primary Reason for Your Visit: vaginal delivery, vacuum assisted. Chronic hypertension in Attending Provider: Dorothy Morales Primary Care Provider: Care Physician,No Primary Discharge Orders/Prescriptions Prescriptions: New ibuprofen 800 mg tablet 800 mg PO Q8H PRN (Reason: pain) 7 Days Qty: 30 RF: 0 Continued PNV #[id number] 30 mg iron-10 mg iron-1 mg capsule 1 cap PO DAILY RF: 0 ferrous sulfate 325 mg (65 mg iron) tablet 325 mg PO DAILY RF: 0 Discontinued aspirin [Adult Low Dose Aspirin] 81 mg tablet,delayed release (DR/EC) 81 mg PO DAILY RF: 0 Referrals / Follow Up: Care Physician,No Primary [Primary Care Provider] - Disposition Disposition (needs filled in before D/C Order can be placed): Home, Self Care
[2021-12-15] MEDS: 0.9% Saline Lock 10 ML Syringe IV ×2 (06:42→09:19)
--- NOTE | 2021-12-15 07:30 | NURSING ---
report given to Ivette Bradford RN who is assuming care of pt at this time
[2021-12-15 08:30] LABS: Absolute Lymphocyte Count 1.67 X10^3/uL (0.83-4.51); Absolute Neutrophil Count 16.1 X10^3/uL (2.0-7.7); Basophil# 0.03 X10^3/uL; Basophil% 0.2 % (0-1); Eosinophil# 0.01 X10^3/uL; Eosinophils% 0.1 % (0-5); Hematocrit 32.1 % (37-47); Hemoglobin 10.5 g/dL (12.0-15.0); Lymphocyte # 1.67 X10^3/ul (0.83-4.51); Mean Corp Hgb Conc 32.7 g/dL (32-36); Mean Corpuscular Hgb 27.3 pg (27.0-32.0); Mean Corpuscular Volume 83.4 fL (81-99); Mean Platelet Vol. 13.5 fl (6.2-12.0); Monocyte# 0.59 X10^3/uL; Monocyte% 3.2 % (0-10); NRBC Flagged by Analyzer 0 % (0-5); Neutrophil # 16.11 X10^3/uL (2.7-7.7); Platelet Count 142 K/mm3 (150-450); RBC Distribution Width CV 14.6 % (11.6-14.6); RBC Distribution Width SD 43.8 fl (35.1-43.9); Red Blood Count 3.85 M/mm3 (4.2-5.4); White Blood Count 18.5 K/mm3 (4.4-11.0)
[2021-12-15] MEDS: Ferrous Sulfate 325 MG Tablet PO (08:41)
[2021-12-16] VITALS (7 sets, daily range): BP systolic 133–136; BP diastolic 72–80; PULSE 99–114; RESP 16; TEMP 36–37; O2SAT 97–98
--- NOTE | 2021-12-16 10:17 | PCM.PN.OB ---
Subjective Subjective Patient doing well without complaints. Tolerating PO. Ambulating and voiding without difficulty. feeding well. Denies chest pain, shortness of breath, calf pain/swelling, fevers, chills, lightheadedness. Objective Data Objective Data Vital Signs: Vital Signs Temp Pulse Resp BP Pulse Ox 97.3 F L 102 H 16 136/74 H 98 12/16/21 08:31 12/16/21 08:31 12/16/21 08:30 12/16/21 08:31 12/16/21 08:30 Oxygen Delivery Method Room Air Weight: 242 lb Body Mass Index (BMI) 42.8 Intake & Output: Intake and Output for Last 24 Hours 12/14/21 12/15/21 12/16/21 23:59 23:59 23:59 Intake Total 1555.10 / 1555.10 2743.59 / 2743.59 Output Total 1250 / 1250 1825 / 1825 Balance 305.10 / 305.10 918.59 / 918.59 Lab / Micro Data Result Diagrams: 12/15/21 08:20 Micro: Microbiology 12/13/21 20:00 Nasal Secretion SARS-CoV-2 Antigen (Rapid) - Final ROS Constitutional Constitutional: Reports systems reviewed and no addt'l complaints, except as documented Cardiovascular Cardiovascular: Reports systems reviewed and no addt'l complaints, except as documented Respiratory/Chest Respiratory/Chest: Reports systems reviewed and no addt'l complaints, except as documented Gastrointestinal Gastrointestinal: Reports systems reviewed and no addt'l complaints, except as documented Physical Exam Const alert, oriented x3 and no apparent distress HEENT Head and Scalp: atraumatic Resp normal respiratory effort GI soft to palpation and non-tender Bimanual Exam - Vag & Uterus: uterus non-tender Uterus Palpation: uterus fundus firm (below Umbilicus) Assessment & Plan (1) Supervision of normal first : QUALIFIERS: Trimester: first trimester Qualified Code(s): Z34.01 - Encounter for supervision of normal first , first trimester COMMENT: PRR URIEL: 12/20/2021 girl Spouse: Levi (2) Vaginal delivery: COMMENT: 39 IOL chtn JV vavd PLAN: s/p PPD #1 1. routine post delivery care 2. breast feeding- support given 3. rh positive 4. rubella immune
[2021-12-16] MEDS: Ferrous Sulfate 325 MG Tablet PO (10:26)
== END 2021-12-16 11:45 | disposition home or self-care (01) | DRG 807 ==
PROVIDERS: Admitting Provider Obstetrics & Gynecology; Visit Provider Obstetrics & Gynecology
DX: O11.4 Pre-existing hypertension with pre-eclampsia, complicating childbirth (principal); Z37.0 Single live birth; J45.909 Unspecified asthma, uncomplicated; O62.1 Secondary uterine inertia; O69.81X0 Labor and delivery complicated by cord around neck, without compression, not applicable or unspecified; Z79.82 Long term (current) use of aspirin; O99.213 Obesity complicating pregnancy, third trimester; O70.0 First degree perineal laceration during delivery; Z3A.39 39 weeks gestation of pregnancy; O99.52 Diseases of the respiratory system complicating childbirth; O99.012 Anemia complicating pregnancy, second trimester
CPT/HCPCS: 59025; 59050; 82570; 84156; 85025; 86850; 86900; 86901; 87426; 99218; J7040; J7120; A4216; G0378; J2405